=== PATIENT | female | born 2000 | race Caucasian/White ===

== ENCOUNTER 2021-01-17 14:15 | Emergency (ER) | payer OTHER, SELFPAY ==
[2021-01-17 14:21] VITALS: BP 122/74; PULSE 84; RESP 20; TEMP 36.9; O2SAT 100
--- NOTE | 2021-01-17 16:52 | ED.WOUNDLAC ---
HPI - Wound/Laceration General Chief Complaint: Wound/Laceration Stated Complaint: cut middle finger on slicer at work Time Seen by Provider: 01/17/21 16:48 Source: patient Mode of arrival: Ambulatory History of Present Illness HPI narrative: Otherwise healthy 20-year-old female here for evaluation of a cut to her left middle finger. She states that she cut it on a slicer at work. She is unsure as to when her last tetanus shot was. She did clean out prior to arrival. Was covered with a bandage in triage. Related Data Previous Rx's Medication Instructions Recorded dextroamphetamine-amphetamine ER 20 mg PO QDAY #30 cap 07/26/17 20 mg 24hr capsule,extend release (Adderall XR) Allergies Allergy/AdvReac Type Severity Reaction Status Date / Time No Known Drug Allergies Allergy Verified 01/17/21 14:22 Review of Systems Musculoskeletal Comments: Pain to the index and middle fingers of the left hand Integumentary/Breasts Comments: Cut to the left hand Neurologic Comments: Tingling to the end of her index and middle finger Hematologic/Lymphatic On Anticoagulants: No Patient History Medical History Attention deficit hyperactivity disorder (ADHD) Surgical History History of third molar tooth extraction Social History marital status: unmarried,single Smoking Status: Never smoker alcohol intake: never substance use type: does not use Smoking Status: Never smoker Exam Initial Vital Signs Initial Vital Signs: Vital Signs Temperature 98.4 F 01/17/21 14:21 Pulse Rate 84 01/17/21 14:21 Respiratory Rate 20 01/17/21 14:21 Blood Pressure 122/74 01/17/21 14:21 Pulse Oximetry 100 01/17/21 14:21 Cardio Pulses: radial pulses present on the left Skin Other: 1 cm laceration on the volar aspect of the left middle finger just proximal to the DIP joint. Neuro Other: Patient does report decreased sensation to light touch to the tip of her left middle finger. Extrem Other: She is able to flex and extend all joints of the middle and index finger. Procedures Laceration Repair Laceration 1: Site: hand Side (If applicable): left Size (cm): 1 Description: linear Depth: simple, single layer Local Anesthetic: lidocaine 1% and with bicarb Amount of anesthesia used (mL): 3 Pre-repair: wound explored and deep structures intact Skin layer closed with: nylon Size (cm): 5-0 Number of sutures: 3 Technique: simple, interrupted Course Orders Ordered: Discontinued Medications Bacitracin (Bacitracin Oint 0.9 Gm Pckt) 1 applic TOP NOW ONE Stop: 01/17/21 16:54 Last Admin: 01/17/21 16:59 Dose: 1 applic Documented by: LUCHO Diphtheria/Tetanus/Acell Pertussis (Tet,Diph,Pertuss(Acell),Vac/Pf 0.5 Ml Syringe) 0.5 ml IM .ONCE ONE Stop: 01/17/21 17:36 Last Admin: 01/17/21 17:46 Dose: 0.5 ml Documented by: ILEANA Lidocaine/Sodium Bicarbonate (Lido 1%/Sod Bicarb 8.4% (10ml) 10 Ml Syringe) 10 ml INJ NOW ONE Stop: 01/17/21 16:54 Last Admin: 01/17/21 16:59 Dose: 10 ml Documented by: LUCHO Vital Signs Vital signs: Vital Signs - 8 hr 01/17/21 14:21 01/17/21 17:53 Temperature 98.4 F Pulse Rate 84 80 Respiratory Rate 20 16 Blood Pressure 122/74 Pulse Oximetry 100 100 MDM - Wound/Laceration MDM Narrative Medical decision making narrative: Tetanus was updated, wound was clean, no deep structures involved. Wound was closed with 3 stitches as described above. Patient was given return precautions and follow-up instructions and care instructions. She expressed understanding agreement. No indication for radiologic studies. Discharge Plan Departure Patient Disposition: Home Clinical Impression: Laceration Instructions: DI for Minor Laceration Activity Restrictions/Additional Instructions: The stitches do need to be removed in 7-10 days. Until then you can wash your hands like normal in use open water like normal. I do recommend that if your going to some urged your hands and water that you wear a glove. Return to the emergency department for any new or worsening symptoms Prescriptions: No Action dextroamphetamine-amphetamine [Adderall XR] 20 MG capsule,extended release 24hr 20 mg PO QDAY Qty: 30 RF: 0 Referrals: Maria De Jesus Rendon DO [Primary Care Provider] -
[2021-01-17] MEDS: LIDO 1%/SOD BICARB 8.4% (10ML) 10 ML SYRINGE INJ (16:59)
[2021-01-17] MEDS: BACITRACIN OINT 0.9 GM PCKT 1 APPLIC TOP (16:59)
[2021-01-17] MEDS: TET,DIPH,PERTUSS(ACELL),VAC/PF 0.5 ML SYRINGE IM (17:46)
[2021-01-17 17:53] VITALS: PULSE 80; RESP 16; O2SAT 100
== END 2021-01-17 17:55 | disposition home or self-care (01) ==
PROVIDERS: Emergency Provider Emergency Medicine; Family Provider Family Medicine; PCP Family Medicine
DX: S61.213A Laceration without foreign body of left middle finger without damage to nail, initial encounter (principal); W26.8XXA Contact with other sharp object(s), not elsewhere classified, initial encounter; Y99.0 Civilian activity done for income or pay; Z23 Encounter for immunization
CPT/HCPCS: 99283; 90715

== ENCOUNTER 2021-01-25 08:39 | Emergency (ER) | payer OTHER, SELFPAY ==
[2021-01-25 08:45] VITALS: BP 127/71; PULSE 75; RESP 16; TEMP 36.6; O2SAT 97; BMI 21.2
--- NOTE | 2021-01-25 08:51 | ED.RECABL ---
HPI - Recheck/Abnormal Lab/Rx General Chief Complaint: Recheck/Abnormal Lab/Rx Stated Complaint: Remove stitches to left hand Time Seen by Provider: 01/25/21 08:46 Source: patient Mode of arrival: Ambulatory Limitations: no limitations History of Present Illness HPI narrative: 20-year-old woman who presents for suture removal. Left middle finger, cut it while at work on 01/17. She still has some minor numbness to the pad of the finger. Related Data Previous Rx's Medication Instructions Recorded dextroamphetamine-amphetamine ER 20 mg PO QDAY #30 cap 07/26/17 20 mg 24hr capsule,extend release (Adderall XR) Allergies Allergy/AdvReac Type Severity Reaction Status Date / Time No Known Drug Allergies Allergy Verified 01/25/21 08:45 Patient History Medical History Attention deficit hyperactivity disorder (ADHD) Surgical History History of third molar tooth extraction Social History marital status: unmarried,single Smoking Status: Never smoker alcohol intake: never substance use type: does not use Smoking Status: Never smoker alcohol intake frequency: 0-2 drinks per day Substance Use Type: does not use Exam Narrative Exam Narrative: Wound is healed nicely. No swelling or erythema. Tendon exam is intact. Some minor sensory loss to the pad of the finger. Initial Vital Signs Initial Vital Signs: Vital Signs Temperature 97.9 F 01/25/21 08:45 Pulse Rate 75 01/25/21 08:45 Respiratory Rate 16 01/25/21 08:45 Blood Pressure 127/71 01/25/21 08:45 Pulse Oximetry 97 01/25/21 08:45 Course Vital Signs Vital signs: Vital Signs - 8 hr 01/25/21 08:45 Temperature 97.9 F Pulse Rate 75 Respiratory Rate 16 Blood Pressure 127/71 Pulse Oximetry 97 MDM - Recheck/Abnormal Lab/Rx MDM Narrative Medical decision making narrative: Three sutures removed without difficulty. Discharge Plan Departure Patient Disposition: Home Clinical Impression: Encounter for removal of sutures Instructions: DI for Suture Removal Activity Restrictions/Additional Instructions: Thank you for coming in today May still have some numbness over the tip of the finger but the tendon itself seems like it is not involved. I would expect that as the wound continues to heal you have more and more sensation over the pad of your finger. If you have increasing redness pain swelling or other concerning findings please return to the ER Prescriptions: No Action dextroamphetamine-amphetamine [Adderall XR] 20 MG capsule,extended release 24hr 20 mg PO QDAY Qty: 30 RF: 0 Referrals: Maria De Jesus Rendon DO [Primary Care Provider] -
== END 2021-01-25 08:54 | disposition home or self-care (01) ==
PROVIDERS: Emergency Provider Emergency Medicine; Family Provider Family Medicine; PCP Family Medicine
DX: Z48.02 Encounter for removal of sutures (principal)
CPT/HCPCS: 99281

== ENCOUNTER → 2023-03-21 08:26 | Outpatient (CLI) | payer OTHER, MEDICAID, SELFPAY ==
[2023-03-21 09:25] LABS: Hematocrit 41.1 % (36-46); Hemoglobin 14.1 g/dL (12.0-16.0); Mean Corpuscular HGB Conc 34.3 % (30-36); Mean Corpuscular Hemoglobin 31.7 PG (26-34); Mean Corpuscular Volume 92.3 fL (80-100); Platelet Count 212 X10^3/uL (150-400); Red Blood Cell Count 4.45 X10^6/uL (4.0-5.2); Red Cell Distribution Width 12.3 % (11.6-14.8); White Blood Cell Count 5.3 X10^3/uL (4.5-11.0)
[2023-03-21 10:09] LABS: Vitamin D 25 Hydroxy (D3) 34.5 ng/mL (30.0-100.0)
== END ==
PROVIDERS: Family Provider Family Medicine; PCP Registered Nurse Diabetes Educator; Referring Provider Registered Nurse Diabetes Educator; Visit Provider Registered Nurse Diabetes Educator
DX: F32.A Depression, unspecified (principal); R53.83 Other fatigue
CPT/HCPCS: 36415; 82306; 84443; 85027

== ENCOUNTER → 2024-02-20 07:18 | Outpatient (CLI) | payer OTHER, MEDICAID, SELFPAY ==
[2024-02-21 11:13] LABS: Interpretation Negative (Negative)
== END ==
PROVIDERS: Family Provider Family Medicine; PCP Registered Nurse Diabetes Educator; Referring Provider Registered Nurse Diabetes Educator; Visit Provider Registered Nurse Diabetes Educator
DX: R11.10 Vomiting, unspecified (principal); R12 Heartburn; Z91.018 Allergy to other foods
CPT/HCPCS: 36415; 83013; 86003